=== PATIENT | male | born 1980 | race Caucasian/White ===

== ENCOUNTER 2021-04-05 08:52 | Emergency (ER) | payer BC, SELFPAY ==
[2021-04-05 08:53] VITALS: BP 138/94; PULSE 89; RESP 16; TEMP 36.3; O2SAT 100; BMI 35.5
--- NOTE | 2021-04-05 09:06 | EKG12_ITS ---
Test Reason : SOB Blood Pressure : / mmHG Vent. Rate : 064 BPM Atrial Rate : 064 BPM P-R Int : 140 ms QRS Dur : 092 ms QT Int : 392 ms P-R-T Axes : 024 029 025 degrees QTc Int : 404 ms Normal sinus rhythm Normal ECG Confirmed by CALE DALE, NASEEM ([id number]), brands editor DANILO GUTIERREZ ([id number]) on 04/10/2021 9:41:17 AM Referred By: ANUM Confirmed By:NASEEM MADSEN MD
--- NOTE | 2021-04-05 09:07 | RAD_ITS ---
STUDY: X-RAY CHEST REASON FOR EXAM: Male, 40 years old. Cough and shortness of breath. TECHNIQUE: Single AP portable view of the chest. COMPARISON: None. FINDINGS: EKG electrodes are seen. Mild elevation of the right hemidiaphragm. The lungs are clear. There is no demonstrated pleural abnormality. Normal size heart. Normal mediastinum and kristen. Normal visualized pulmonary arteries. Normal visualized aortic arch and descending thoracic aorta. Normal visualized thoracic spine. Normal visualized ribs, clavicles, and shoulders. There is no demonstrated abnormality of the visualized soft tissue structures of the upper abdomen. RAD/Chest PA and Lateral IMPRESSION: Normal x-ray examination of the chest. Electronically Signed: Rony Willson MD at 9:56 EDT , Service support ,
--- NOTE | 2021-04-05 09:09 | ED.VIS.DYS ---
HPI History of Present Illness Chief Complaint: Shortness of Breath Informant: patient Onset/Context/Timing Onset: Today Context: gradual Timing: Intermittent Current Severity: Mild Maximum Severity: Mild Worsened by: Nothing Relieved by: Nothing Associated Symptoms Negative for cough, rhinorrhea, post nasal drip, ear pain, fever, sore throat, chills, sweats, clear sputum, white sputum, yellow sputum or green sputum Chest Pain: Positive for None Narrative Narrative: 40-year-old male past medical history of exercise-induced asthma and PVCs. States that the last couple days he has had some upper back and shoulder discomfort nothing makes her particular better or worse other than ibuprofen has helped. And today had some mild shortness of breath. He denies any history of DVT or PE any specific family members other than an aunt had blood clots. He did travel to [facility] in March. He denies any hemoptysis. He denies any chest pain. He denies any fever or chills. He did get vaccinated for Covid. He denies any leg pain or swelling. PE Risk Factors: Positive for Recent travel; Negative for Cancer, OCP + Smoking + > 35, Prior DVT or PE, Recent immobilization and Recent surgery Prior similar symptoms: No Recent Illness/Hospitalization: No PFSH PFSH Home Medications fluoxetine 10 mg PO DAILY 04/05/21 [History Last Taken Unknown] metoprolol succinate 25 mg PO DAILY 04/05/21 [History Last Taken Unknown] Allergy/AdvReac Type Severity Reaction Status Date / Time shellfish derived Allergy Anaphylaxis Verified 04/05/21 08:53 Social History Smoking Status: Never smoker ROS ROS ED ROS Narrative Shortness of breath. Review of Systems ROS Unobtainable: Denies due to encephalopathy Constitutional Constitutional ED: Denies chills or fever(s) Eyes Eyes: Denies change in vision ENT ENT ED: Denies ear pain or sore throat Cardiovascular Cardiovascular: Denies chest pain Respiratory/Chest Respiratory/Chest: Denies cough or dyspnea Gastrointestinal Gastrointestinal: Denies abdominal pain, nausea or vomiting Genitourinary Genitourinary ED: Denies dysuria or hematuria Musculoskeletal Musculoskeletal: Denies arthralgias or myalgias Integumentary Denies abscess or rash Neurologic Neurologic: Denies headache(s) Psychiatric Psychiatric: Denies depression Endocrine Endocrinology: Denies polyuria Hematologic/Lymphatic Hematologic/Lymphatic: Denies easy bruising Allergic/Immunologic Allergic/Immunologic ED: Denies urticaria EXAM Physical Exam Narrative Exam Narrative: 40-year-old male no acute distress. Vital signs stable afebrile. Pulse rate 89. Pulse ox 9% on room air no signs of hypoxia. HEENT exam normal. Lungs clear to auscultation bilaterally. Heart regular rate and rhythm no murmur. Moving all 4 extremities. Calves are nontender without edema or cords. Neurologic exam normal. Const Vital Signs: 04/05/21 08:53 04/05/21 09:21 Temperature 97.3 F L Temperature Source Temporal Pulse Rate 89 Respiratory Rate 16 Respiratory Effort Normal Non-Labored Blood Pressure 138/94 H Blood Pressure Mean 108 Pulse Ox 100 Oxygen Delivery Method Room Air Room Air Positive well nourished and well developed; Negative for obese, cachectic, contractures or unkempt General Appearance ED: well developed and NAD; Negative for unkempt, cachectic, contractures or pallor Nutritional Appearance: Negative for cachectic or obese HEENT Reports moist mucous membranes atraumatic; Negative for trauma or tenderness Eyes PERRL and EOMs intact bilaterally General Eye ED: Negative for pale conjunctiva Neck no lymphadenopathy, supple, no meningeal signs and no JVD General: Negative for tenderness Resp normal respiratory effort and clear to auscultation bilaterally Auscultation: Negative for rales, rhonchi, wheezes or diminished lung sounds Cardio regular rate, regular rhythm, S1 normal heart sound, S2 normal heart sound and no murmurs GI non-tender, non-distended and no masses Auscultation: normoactive bowel sounds Palpation: soft; Negative for tender, guarding or rebound tenderness present Back/Spine no CVA tenderness and normal to inspection General Back: Negative for CVA tenderness or tenderness Extremity normal to inspection General Extremety ED: Negative for edema or tenderness General Extremity: Negative for edema Neuro oriented x3 Sensorium / Orientation: alert, oriented to person, oriented to place, oriented to time and orientation impaired; Negative for confused, lethargic or stuporous Motor Exam: strength 5/5 throughout Psych mental status grossly normal Appearance: Negative for unkempt Thought Process: normal thought process Skin no wounds General Skin Exam: Negative for jaundice or pallor Lesions: no lesions Rashes: no rashes MDM MDM MDM Narrative Medical decision making narrative: 40-year-old male atypical nonreproducible right upper back discomfort. Subjective shortness of breath. Normal vital signs. His only risk factor for DVT or PE is travel. His exam is normal. My suspicion is actually low. Will undergo a cardiac work-up with a D-dimer. Repeat exam at 10:11 AM the patient is doing well. We went over all of his test results. He is comfortable being discharged to home. Lab Data Attestation: I reviewed the patient's lab results. Lab results narrative: CBC shows a normal white count of five. Hemoglobin fifteen. D-dimer negative at less than 0.27. Electrolytes unremarkable gap of four. Normal creatinine of one. Labs: Laboratory Results - last 24 hr 04/05/21 04/05/21 04/05/21 09:25 09:25 09:25 WBC 5.2 RBC 5.13 Hgb 15.5 Hct 45.4 MCV 88.5 MCH 30.2 MCHC 34.1 RDW Std Deviation 42.8 RDW Coeff of [place] 13.2 Plt Count 222 MPV 9.8 Immature Gran % (Auto) 0.000 Neut % (Auto) 45.0 L Lymph % (Auto) 44.7 H [place] % (Auto) 6.6 Eos % (Auto) 3.3 Baso % (Auto) 0.4 Absolute Neuts (auto) 2.3 Absolute Lymphs (auto) 2.31 Nucleated RBC % 0 D-Dimer Quant (PE/DVT) <= 0.27 Sodium 140 Potassium 4.1 Chloride 108 H Carbon Dioxide 28.0 Anion Gap 4 L BUN 16 Creatinine 1.03 Estim Creat Clear Calc 86.03 Est GFR (MDRD) Af Amer 103 Est GFR (MDRD) Non-Af 85 BUN/Creatinine Ratio 15.5 Glucose 92 Calcium 8.6 Radiography Chest X-Ray - ED: 2 View, Read by ED Physician, Normal, Heart, Lungs, Mediastinum, Bony Structures and No Acute Disease Diagnostic Testing: Radiology Impression Chest X-Ray 04/05/21 09:07 IMPRESSION: Normal x-ray examination of the chest. Electronically Signed: Rony Willson MD at 9:56 EDT , Service support , Chest x-ray two views AP lateral read both on myself the radiologist shows no acute abnormality. Rhythm Strip Rhythm Strip: Sinus Rhythm Rate: 64 Ectopy: None EKG Initial EKG: Attestation: I personally reviewed and interpreted this EKG as follows: Interpretation: Sinus Rhythm and No Acute Injury Pattern Comments: Normal sinus rhythm rate of 64 no acute signs of [place] nor ischemia nor dysrhythmia. Prior EKG tracings: not available for review Discharge Plan Triage Chief Complaint: Shortness of Breath ED Provider: Alexx Plunkett Dx/Rx/DC Orders Prescriptions: No Action fluoxetine 10 mg Capsule 10 mg PO DAILY RF: 0 metoprolol succinate 25 mg Tablet Extended Release 24 Hr 25 mg PO DAILY RF: 0 Primary Care Provider: Low Sanchez
--- NOTE | 2021-04-05 09:10 | NURSING ---
NO OLD EKGS
[2021-04-05 09:21] VITALS: O2SAT 97
[2021-04-05 09:32] LABS: Absolute Lymphocyte Count 2.31 X10^3/uL (0.83-4.51); Absolute Neutrophil Count 2.3 X10^3/uL (2.0-7.7); Basophil# 0.02 X10^3/uL; Basophil% 0.4 % (0-1); Eosinophil# 0.17 X10^3/uL; Eosinophils% 3.3 % (0-5); Hematocrit 45.4 % (40-54); Hemoglobin 15.5 g/dL (13.0-16.5); Lymphocyte # 2.31 X10^3/ul (0.83-4.51); Lymphocyte % 44.7 % (19-41); Mean Corp Hgb Conc 34.1 g/dL (32-36); Mean Corpuscular Hgb 30.2 pg (27.0-32.0); Mean Corpuscular Volume 88.5 fL (80-94); Mean Platelet Vol. 9.8 fl (6.2-12.0); Monocyte# 0.34 X10^3/uL; Monocyte% 6.6 % (0-10); NRBC Flagged by Analyzer 0 % (0-5); Neutrophil # 2.33 X10^3/uL (2.7-7.7); Platelet Count 222 K/mm3 (150-450); RBC Distribution Width CV 13.2 % (11.6-14.6); RBC Distribution Width SD 42.8 fl (35.1-43.9); Red Blood Count 5.13 M/mm3 (4.6-6.2); White Blood Count 5.2 K/mm3 (4.4-11.0)
[2021-04-05 09:43] LABS: Anion Gap 4 (5-15); BUN 16 mg/dL (7-18); BUN/Creat Ratio 15.5 RATIO (10-20); Calcium,Total 8.6 mg/dL (8.5-10.1); Chloride 108 mmol/L (98-107); Creatinine, Serum 1.03 mg/dL (0.70-1.30); EST Glomerular Filtration Rate 85 mL/min (>60); Est Glom Filt Rate - Afr Amer 103 mL/min (>60); Estimated Creatinine Clearance 86.03 ml/min; Glucose 92 mg/dL (74-106); Potassium 4.1 mmol/L (3.5-5.1); Sodium Level 140 mmol/L (136-145)
[2021-04-05 09:44] LABS: D-Dimer Quantitative (DVT/PE) <= 0.27 FEU/ug/m (0.27-0.49)
[2021-04-05 10:41] VITALS: BP 134/84; PULSE 61; RESP 18; O2SAT 97
== END 2021-04-05 10:45 | disposition home or self-care (01) ==
PROVIDERS: Emergency Provider Emergency Medicine; PCP Family Medicine
DX: R06.02 Shortness of breath (principal); I49.3 Ventricular premature depolarization; J45.990 Exercise induced bronchospasm; Z79.899 Other long term (current) drug therapy
CPT/HCPCS: 71046; 80048; 85025; 85379; 93005; 99284